=== PATIENT | male | born 1970 | race Two or more races ===

== ENCOUNTER 2018-07-21 07:30 | Day surgery (SDC) | payer OTHER | END 2018-07-21 10:40 | disposition home or self-care (01) | LOC: AMB-ENDOS 07:30 | DX: K63.89 Other specified diseases of intestine (principal); K64.8 Other hemorrhoids; Z85.038 Personal history of other malignant neoplasm of large intestine; Z08 Encounter for follow-up examination after completed treatment for malignant neoplasm ==

== ENCOUNTER 2019-08-03 06:45 | Day surgery (SDC) | payer OTHER ==
[~2019-08-03 06:45] MED LIST: ENALAPRIL MALEA10 MG PO; Intestinex CAP PO; OXYC1TAB9 PO
== END 2019-08-03 10:25 | disposition home or self-care (01) ==
LOC: AMB-ENDOS 06:45
DX: K64.8 Other hemorrhoids (principal)

== ENCOUNTER 2020-07-11 11:10 | Day surgery (SDC) | payer OTHER | END 2020-07-11 16:45 | disposition home or self-care (01) | LOC: AMB-ENDOS 11:10 | PROVIDERS: ATTEND Surgery | DX: K57.32 Diverticulitis of large intestine without perforation or abscess without bleeding (principal); K64.8 Other hemorrhoids; Z20.828 Contact with and (suspected) exposure to other viral communicable diseases ==

== ENCOUNTER 2021-09-04 09:51 | Day surgery (SDC) | payer OTHER | END 2021-09-04 14:50 | disposition home or self-care (01) | LOC: AMB-ENDOS 09:51 | PROVIDERS: ATTEND Surgery | DX: K62.89 Other specified diseases of anus and rectum (principal); K64.8 Other hemorrhoids ==

== ENCOUNTER 2022-03-31 12:39 | Inpatient (IN) | payer OTHER ==
[~2022-03-31] VITALS: Ht 175.3 cm; Wt 81.6 kg
[2022-03-31] MEDS ORDERED: LISINOPRIL20 MG PO (13:18)
--- NOTE | 2022-03-31 13:19 | NUR ---
SE REFCIBE PACIENTE ALERTA, ORIENTADO X 3 ESFERAS REFIETE PRESION SARA Y QUE EN LA MANANA SINTIO PRESION EN PECHO SE ESTIMAN S/V BW=420/81 SE REALIZA EKG SE UBICA EN SHANA DE ESPERA.
--- NOTE | 2022-03-31 15:13 | NUR ---
SE ORIENTA PTE SOBRE ZEINAB DE MUESTRAS LAS CUALES SE EXTRAEN BAJO MEDIDAS ASEPTICAS,SE REALIZA EKG AL MOMENTO DEL TRIAGE.SE NOTIFICA PLACA PENDIENTE.
[2022-04-01] MEDS ORDERED: LISINOPRIL20 MG (11:45)
== END 2022-04-03 13:35 | disposition home or self-care (01) | DRG 316 ==
LOC: ER 12:39 → MEDJ 21:06
PROVIDERS: ADMIT Internal Medicine; ATTEND Internal Medicine
PROC: 4A12X4Z Monitoring of Cardiac Electrical Activity, External Approach (ICD-10-PCS; 2022-03-31)
PROC: B24BZZZ Ultrasonography of Heart with Aorta (ICD-10-PCS; principal; 2022-04-01)
DX: I31.9 Disease of pericardium, unspecified (principal); R07.89 Other chest pain; U09.9 Post COVID-19 condition, unspecified; F43.9 Reaction to severe stress, unspecified; I11.9 Hypertensive heart disease without heart failure

== ENCOUNTER 2022-06-24 07:24 | Outpatient (CLI) | payer OTHER ==
[~2022-06-24 07:24] MED LIST changes: +LISINOPRIL20 MG; +LISINOPRIL20 MG PO
== END 2022-06-24 07:30 | disposition home or self-care (01) ==
LOC: NUCLEAR 07:24
PROVIDERS: ATTEND Internal Medicine
DX: I10 Essential (primary) hypertension (principal)
CPT/HCPCS: 78452; 93017; A9500